=== PATIENT | male | born 1980 | race Caucasian/White ===

== ENCOUNTER 2024-03-10 13:56 | Inpatient (IN) | payer BC, SELFPAY ==
[2024-03-10 14:46] VITALS: BP 136/96; PULSE 100; RESP 16; TEMP 36.7; O2SAT 94; BMI 37.8
[2024-03-10 15:00] VITALS: PULSE 100; RESP 16
[2024-03-10] MEDS: 0.9 % SODIUM CHLORIDE 1000 ml 1,000 ML 75 ML IV (15:32)
--- NOTE | 2024-03-10 15:33 | PM.IMHP1 ---
Hospitalist- H&P: HPI History of Present Illness Date Seen: 03/10/24 Chief complaint: Direct Admit Narrative: Morris Dias is a 43 year old male who was directly admitted to the hospital from [facility] clinic today for perforated sigmoid diverticulitis. He presented to the clinic this morning with left groin pain, present for 5 days. No inciting incident or trauma, no associated nausea, diarrhea, or constipation. Last BM was this note morning and normal. Ibuprofen helped pain moderately. Last night, patient had a fever at home which prompted his visit to the clinic today. Clinic findings: - WBC of 16 - Sigmoid diverticulitis on CT Ab/pelvis with microperforation - Dr. Graves reviewed case with Dr. Gallegos of General surgery; recommended direct admission for IVFs, abx, NPO status, monitoring Upon arrival to the floor, patient continues to have left lower quadrant pain, but no other concerns for hospitalist team. Morris has never had a colonoscopy. Histories updated below. Review of Systems Status of ROS: Reports: 10 or more systems reviewed and unremarkable except as noted in History and below Narrative: - no chest pain, no dyspnea - no skin complaints, no GI or concerns PFSH PFS Medical History (Updated 03/10/24 @ 16:34 by Wilma Bailon MD) Hyperlipidemia ?E78.5 - Hyperlipidemia, unspecified (ICD-10) Non-insulin dependent diabetes mellitus Essential hypertension ?I10 - Essential (primary) hypertension (ICD-10) Surgical History (Updated 03/10/24 @ 16:02 by Wilma Bailon MD) Status post open reduction and internal fixation (ORIF) of fracture ?Z98.890 - Other specified postprocedural states (ICD-10) ?Z87.81 - Personal history of (healed) traumatic fracture (ICD-10) Social History (Updated 03/10/24 @ 16:03 by Wilma Bailon MD) Narrative: Lives independently in [place]. Nonsmoker, + chewing tobacco. ETOH a few nights/week, no h/o withdrawal. Works for [employer] (formerly [employer]). Father Daniel would be MDM if needed. Full Code status. What is your current living situation?: I presently have a place to live Problems where you live: no known problems Problems where you live details: no known problems In the past 12 months, utilities in danger of being shut off: no In past 12 months, lack of transportation kept you from medical appts, meetings, work, or getting things needed for daily living: no In the past 12 mos, have been you worried that your food would run out before you had money to buy more?: never true In the past 12 mos, the food you bought just didn't last and you didn't have money to buy more?: never true Highest level of school completed/degree received: some college, no degree Smoking Status: Never smoker How often do you have a drink containing alcohol: 2-3 times a week Alcohol type: beer How many standard drinks containing alcohol do you have on a typical day: 7 to 9 How often do you have six or more drinks on one occasion: Never AUDIT-C Alcohol total score: 6 Caffeine: Yes How often does anyone, including family, friends and others, physically hurt you: never How often does anyone, including family, friends and others, insult or talk down to you: never How often does anyone, including family, friends and others, threaten you with harm: never How often does anyone, including family, friends and others, scream or curse at you: never service: Yes Meds Home Medications and Allergies Home Medications ?Medication ?Instructions ?Recorded ?Confirmed ?Type amlodipine 5 mg tablet 5 mg PO DAILY 03/10/24 03/10/24 History atorvastatin 10 mg tablet 10 mg PO DAILY 03/10/24 03/10/24 History losartan 100 1 tab PO DAILY 03/10/24 03/10/24 History mg-hydrochlorothiazide 25 mg tablet metformin 1,000 mg tablet 1,000 mg PO DAILY 03/10/24 03/10/24 History Allergies Allergy/AdvReac Type Severity Reaction Status Date / Time Penicillins Allergy Rash Verified 03/10/24 15:06 Exam Narrative: Exam Narrative: GEN: Alert and oriented, nontoxic HEENT: EOMIs bilaterally, no scleral icterus CV: RRR, no tachycardia, no murmurs R: LCTA bilaterally Ab: No distention, + LLQ pain Ext: wwp, no concerning edema Skin: No concerning skin lesions or rashes on exposed skin Neuro: No focal deficits Psych: Appropriate Const: Vital Signs, click to edit/add: Vital Signs - 24 hr 03/10/24 14:46 03/10/24 14:46 Temperature 98.0 F Pulse Rate [Pulse Oximeter] 100 Respiratory Rate 16 Blood Pressure [Ri ght Arm] 136/96 H Pulse Oximetry 94 94 Oxygen Delivery Me thod Room Air Room Air Assessment and Plan Assessment and plan (1) Diverticulitis of colon with perforation: Problem comment: - Ertapenem (h/o remote allergy to PCN, patient doesn't remember if he had a rash or edema), NPO status, General Surgery referral Status: Acute (2) Non-insulin dependent diabetes mellitus: Problem comment: - Last A1C 5.2, on once daily Metformin as an outpatient - hold Metformin, BID accuchecks Status: Acute (3) Essential hypertension: Problem comment: - on Losartan/HCTZ and Amlodipine as an outpatient, continue these Status: Acute Plan - per above - Lovenox for ppx - Full Code
[2024-03-10] MEDS: ERTAPENEM 1 GM in 0.9 % SODIUM CHLORIDE Mini-bag 100 ML IVPB (15:34)
[2024-03-10] MEDS: MORPHINE 2 MG/ML inj IVP ×2 (18:46→23:07)
[2024-03-10 19:00] VITALS: BP 159/102; PULSE 85; RESP 20; TEMP 37.1; O2SAT 96
--- NOTE | 2024-03-10 19:22 | PC.NURSE ---
End of shift: Patient alert and oriented x4. VSS. rates pain 5/10 PRN morphine admin. x1. okayed patient to have small chips (ice). Patient indep. in Rm to BR and up to chair. IV in left wrist patent. Patient on RA, denies N/V/SOB.
[2024-03-10 22:06] VITALS: BP 128/88; PULSE 85; RESP 20; TEMP 37.6; O2SAT 94
[2024-03-10] MEDS: SODIUM CHLORIDE 0.9 % (FLUSH) 10 ML SYRINGE 5 ML IVF (23:06)
[2024-03-11 03:00] VITALS: BP 133/83; PULSE 86; RESP 18; TEMP 36.9; O2SAT 94
[2024-03-11] MEDS: 0.9 % SODIUM CHLORIDE 1000 ml 1,000 ML 75 ML IV ×2 (05:03→18:05)
--- NOTE | 2024-03-11 05:24 | PC.NURSE ---
End of shift note ([id number]): Patient pleasant, alert and oriented. Independent in room. Per Dr Bailon ok for small amount of ice chips. Given PRN?Morphine IVP for pain in left lower abdomen rated 7/10. Good urine output. ?
[2024-03-11 06:11] LABS: Basophils Absolute Auto 0.04 K/uL (0.00-0.30); Basophils Percent Auto 0.4 % (0.0-3.0); Eosinophils Absolute Auto 0.22 K/uL (0.00-0.50); Eosinophils Percent Auto 2.4 % (0.0-7.0); Hematocrit 48.9 % (37.0-53.0); Hemoglobin* 16.7 gm/dL (13.5-17.5); Immature Granulocytes Abs Auto 0.07 K/uL (0.00-0.30); Immature Granulocytes Pct Auto 0.8 %; Lymphocytes Percent Auto 16.2 % (20-44); Mean Corpuscular HGB Conc 34 gm/dL (32-36); Mean Corpuscular Hemoglobin 31 pg (26-34); Mean Corpuscular Volume 92 fL (80-100); Monocytes Percent Auto 10.9 % (0.0-11.0); Neutrophils Absolute Auto 6.22 K/uL (1.7-7.0); Neutrophils Percent Auto 69.3 % (42.0-72.0); Platelet Count* 203 K/uL (140-440); RDW Coefficient of Variation % 12.7 % (11.5-15.5); Red Blood Count 5.33 m/uL (4.30-5.90); White Blood Count* 8.99 K/uL (4.50-11.00)
[2024-03-11 06:17] LABS: Slide Review Reflex No
[2024-03-11 06:23] LABS: Chloride* 105 mmol/L (96-114)
[2024-03-11 06:24] LABS: Potassium* 3.4 mmol/L (3.6-5.1); Sodium* 141 mmol/L (135-149)
[2024-03-11 06:26] LABS: Est. Creatinine Clearance* 90.25; Estimated Glomerular Filt Rate 95 ml/min
[2024-03-11 06:27] LABS: Alanine Aminotransferase* 29 U/L (4-50); Alkaline Phosphatase* 72 U/L (40-150); Anion Gap 9 mEq/L (7-15); Aspartate Amino Transferase* 23 U/L (12-35); Bilirubin Direct* 0.5 mg/dL (0.0-0.5); Bilirubin Total* 1.1 mg/dL (0.1-1.5); Blood Urea Nitrogen* 16 mg/dL (5-24); Calcium* 8.9 mg/dL (8.4-10.6); Carbon Dioxide* 27 mmol/L (20-32); Glucose* 127 mg/dL (60-115); Total Protein* 6.8 g/dL (6.0-8.3)
[2024-03-11 06:44] LABS: C Reactive Protein* 22.4 mg/dL (0.5-1.0)
[2024-03-11 09:03] VITALS: BP 152/115; PULSE 85; RESP 18; TEMP 36.5; O2SAT 97
[2024-03-11] MEDS: AMLODIPINE 5 MG TABLET PO (09:07)
[2024-03-11] MEDS: LOSARTAN POTASSIUM 50 MG TABLET 100 MG PO (09:07)
--- NOTE | 2024-03-11 10:48 | PM.GSCN ---
History of Present Illness Consult details Date Seen: 03/11/24 Consult date: 03/11/24 Narrative: 43-year-old male with diabetes was admitted to the hospital with sigmoid diverticulitis and I was asked by Dr. Graves to see him in consultation. Patient states that he developed left lower quadrant abdominal pain last Friday. He describes it as discomfort at night. The next day he felt that the pain was better and he continued with his day. However, in the evening the pain got worse. His pain was gradually getting worse but was not too severe so on Friday he went to work. When he came back from work, he had sweats. He had a fever of 102. He was then seen in clinic yesterday. Patient continued to pass gas and have bowel movements. He was not eating very much. I personally reviewed his CT scan done at the line of clinic. CT showed sigmoid diverticulitis with foci of free air in sigmoid mesentery concerning for microperforation. There was no evidence of an abscess. Patient's WBC was normal on admission. Patient had his first episode of diverticulitis 4-5 years ago and was treated with antibiotics. This was his second episode. Patient has never had a colonoscopy. Review of Systems Narrative: General: no fevers HENT: no problems swallowing CV: no shortness of breath Resp: no cough GI: No nausea, vomiting, abdominal pain : no dysuria, no increased urinary frequency, no hematuria Skin: no new rashes Musculoskeletal: no back pain Neuro: no muscle weakness Psyche: no depression, no anxiety PFSH PFSH Medical History Hyperlipidemia ?E78.5 - Hyperlipidemia, unspecified (ICD-10) Non-insulin dependent diabetes mellitus Essential hypertension ?I10 - Essential (primary) hypertension (ICD-10) Surgical History Status post open reduction and internal fixation (ORIF) of fracture ?Z98.890 - Other specified postprocedural states (ICD-10) ?Z87.81 - Personal history of (healed) traumatic fracture (ICD-10) Social History Narrative: Lives independently in [place]. Nonsmoker, + chewing tobacco. ETOH a few nights/week, no h/o withdrawal. Works for [employer]. Father Daniel would be MDM if needed. Full Code status. What is your current living situation?: I presently have a place to live Problems where you live: no known problems Problems where you live details: no known problems In the past 12 months, utilities in danger of being shut off: no In past 12 months, lack of transportation kept you from medical appts, meetings, work, or getting things needed for daily living: no In the past 12 mos, have been you worried that your food would run out before you had money to buy more?: never true In the past 12 mos, the food you bought just didn't last and you didn't have money to buy more?: never true Highest level of school completed/degree received: some college, no degree Smoking Status: Never smoker How often do you have a drink containing alcohol: 2-3 times a week Alcohol type: beer How many standard drinks containing alcohol do you have on a typical day: 7 to 9 How often do you have six or more drinks on one occasion: Never AUDIT-C Alcohol total score: 6 Caffeine: Yes How often does anyone, including family, friends and others, physically hurt you: never How often does anyone, including family, friends and others, insult or talk down to you: never How often does anyone, including family, friends and others, threaten you with harm: never How often does anyone, including family, friends and others, scream or curse at you: never service: Yes Meds Home Medications and Allergies Home Medications ?Medication ?Instructions ?Recorded ?Confirmed ?Type amlodipine 5 mg tablet 5 mg PO DAILY 03/10/24 03/10/24 History atorvastatin 10 mg tablet 10 mg PO DAILY 03/10/24 03/10/24 History losartan 100 1 tab PO DAILY 03/10/24 03/10/24 History mg-hydrochlorothiazide 25 mg tablet metformin 1,000 mg tablet 1,000 mg PO DAILY 03/10/24 03/10/24 History Allergies Allergy/AdvReac Type Severity Reaction Status Date / Time Penicillins Allergy Rash Verified 03/10/24 15:06 Exam Narrative: Exam Narrative: General appearance: Alert, cooperative, and in no distress Pulmonary: Chest symmetric, lungs clear bilaterally Cardiovascular Heart: Regular rate and rhythm, S1, S2, no murmurs/rubs/gallops Gastrointestinal Abdominal: soft, not distended, tender to palpation in bilateral lower quadrants with the left being more tender, tender to percussion in the left lower quadrant. Not tender to palpation in epigastrium. Skin: Normal skin color, texture, and turgor. No rashes or lesions. Psychiatric: Alert, cooperative, normal affect. Const: Vital Signs, click to edit/add: Vital Signs - 24 hr 03/10/24 14:46 03/10/24 14:46 03/10/24 15:00 Temperature 98.0 F Pulse Rate [Pulse Oximeter] 100 100 Respiratory Rate 16 16 Blood Pressure [Ri ght Arm] 136/96 H Pulse Oximetry 94 94 Oxygen Delivery Me thod Room Air Room Air 03/10/24 19:00 03/10/24 22:06 03/11/24 03:00 Temperature 98.8 F 99.7 F H 98.5 F Pulse Rate [Pulse Oximeter] 85 85 86 Respiratory Rate 20 20 18 Blood Pressure [Ri ght Arm] 159/102 H 128/88 133/83 Pulse Oximetry 96 94 94 Oxygen Delivery Me thod Room Air Room Air Room Air 03/11/24 09:03 Temperature 97.7 F Pulse Rate [Pulse Oximeter] 85 Respiratory Rate 18 Blood Pressure [Ri ght Arm] 152/115 H Pulse Oximetry 97 Oxygen Delivery Me thod Room Air Results Labs Labs: Abnormal lab results 03/11/24 Range/Units 05:50 Lymph % (Auto) 16.2 L (20-44) % [place] # (Auto) 1.00 H (0.00-0.90) K/UL Potassium 3.4 L (3.6-5.1) mmol/L Glucose 127 H (60-115) mg/dL C-Reactive Protein 22.4 H (0.5-1.0) mg/dL Diabetes panel 03/11/24 Range/Units 05:50 Sodium 141 (135-149) mmol/L Potassium 3.4 L (3.6-5.1) mmol/L Chloride 105 (96-114) mmol/L Carbon Dioxide 27 (20-32) mmol/L BUN 16 (5-24) mg/dL Creatinine 1.0 (0.5-1.5) mg/dL Glucose 127 H (60-115) mg/dL Calcium 8.9 (8.4-10.6) mg/dL AST 23 (12-35) U/L ALT 29 (4-50) U/L Alkaline Phosphatase 72 (40-150) U/L Total Protein 6.8 (6.0-8.3) g/dL Albumin 4.0 (3.3-5.0) g/dL Calcium panel 03/11/24 Range/Units 05:50 Calcium 8.9 (8.4-10.6) mg/dL Albumin 4.0 (3.3-5.0) g/dL Pituitary panel 03/11/24 Range/Units 05:50 Sodium 141 (135-149) mmol/L Potassium 3.4 L (3.6-5.1) mmol/L Chloride 105 (96-114) mmol/L Carbon Dioxide 27 (20-32) mmol/L BUN 16 (5-24) mg/dL Creatinine 1.0 (0.5-1.5) mg/dL Glucose 127 H (60-115) mg/dL Calcium 8.9 (8.4-10.6) mg/dL Adrenal panel 03/11/24 Range/Units 05:50 Sodium 141 (135-149) mmol/L Potassium 3.4 L (3.6-5.1) mmol/L Chloride 105 (96-114) mmol/L Carbon Dioxide 27 (20-32) mmol/L BUN 16 (5-24) mg/dL Creatinine 1.0 (0.5-1.5) mg/dL Glucose 127 H (60-115) mg/dL Calcium 8.9 (8.4-10.6) mg/dL Total Bilirubin 1.1 (0.1-1.5) mg/dL AST 23 (12-35) U/L ALT 29 (4-50) U/L Alkaline Phosphatase 72 (40-150) U/L Total Protein 6.8 (6.0-8.3) g/dL Albumin 4.0 (3.3-5.0) g/dL All other labs normal. Progress Note:A&P Assessment and plan (1) Diverticulitis of colon with perforation: Status: Acute Assessment and Plan: 43-year-old male admitted to the hospital with complicated sigmoid diverticulitis with micro perforation. I discussed with the patient his CT findings and his laboratory findings. We also discussed the etiology of diverticulitis and indications for surgery. At this time I would not recommend proceeding with surgery. Will continue with IV antibiotics since patient's pain is not significantly changed from yesterday. He can have sips of clears since he is not obstructed. Patient will need to have a colonoscopy 6 weeks after his episode has resolved.
--- NOTE | 2024-03-11 11:19 | P.IMPN_ITS ---
Progress Note: A&P Assessment and plan (1) Diverticulitis of colon with perforation: Problem details: CT abdomen pelvis at outside facility shows sigmoid diverticulitis with micro perforation. Leukocytosis, WBC 16, at outside facility, now resolved Remains afebrile. No nausea or vomiting General surgery, Dr. Gallegos, consulted, recommending ongoing nonsurgical management at this time, continuing IV antibiotics, advancing diet to clears Continue Ertapenem (h/o remote allergy to PCN, patient doesn't remember if he had a rash or edema) Small sips of clears only Colonoscopy 6 weeks after episode has resolved, per General surgery Status: Acute (2) Non-insulin dependent diabetes mellitus: Problem details: - Last A1C 5.2, on once daily Metformin as an outpatient - hold Metformin, BID accuchecks Status: Acute (3) Essential hypertension: Problem details: - on Losartan/HCTZ and Amlodipine as an outpatient, continue these Status: Acute Plan Continue IV antibiotics as no change in pain since admission. Continue to monitor for improvement. General surgery following. Time Spent With Patient Total time spent: Total time spent caring for the patient today was 45 minutes. This includes time spent for the visit reviewing the chart, time spent during the visit, time spent after the visit and documentation and planning in coordination of care. Subjective Date Seen: 03/11/24 Interval history: Patient reports essentially feeling the same this morning without change/improvement in his pain. Narcotics help briefly. No further nausea. No recent vomiting. Had a rather normal bowel movement yesterday. Remains afebrile. Denies headache or dizziness. Denies chest pain or shortness of breath. Exam Narrative: Exam Narrative: PHYSICAL EXAM General: Pleasant, conversant, NAD HEENT: Normocephalic, atraumatic, sclera white, EOMI, oral mucosa moist Cardiovascular: RRR, S1S2. No pitting edema Pulmonary: CTA bilaterally without rhonchi, rales, expiratory wheezes. No dyspnea Abdominal: Soft, nondistended, LLQ tenderness worsened with palpation in RLQ, no guarding Neurological: Alert, answering questions appropriately, cranial nerves intact, no focal findings Extremities: No gross joint deformity or swelling. AROMI. Neurovascularly intact Skin: Warm, dry. Const: Vital Signs, click to edit/add: Vital Signs - 24 hr 03/10/24 14:46 03/10/24 14:46 03/10/24 15:00 Temperature 98.0 F Pulse Rate [Pulse Oximeter] 100 100 Respiratory Rate 16 16 Blood Pressure [Ri ght Arm] 136/96 H Pulse Oximetry 94 94 Oxygen Delivery Me thod Room Air Room Air 03/10/24 19:00 03/10/24 22:06 03/11/24 03:00 Temperature 98.8 F 99.7 F H 98.5 F Pulse Rate [Pulse Oximeter] 85 85 86 Respiratory Rate 20 20 18 Blood Pressure [Ri ght Arm] 159/102 H 128/88 133/83 Pulse Oximetry 96 94 94 Oxygen Delivery Me thod Room Air Room Air Room Air 03/11/24 09:03 Temperature 97.7 F Pulse Rate [Pulse Oximeter] 85 Respiratory Rate 18 Blood Pressure [Ri ght Arm] 152/115 H Pulse Oximetry 97 Oxygen Delivery Me thod Room Air Labs Labs: Laboratory Results - last 24 hr 03/11/24 05:50 WBC 8.99 RBC 5.33 Hgb 16.7 Hct 48.9 MCV 92 MCH 31 MCHC 34 RDW Coeff of No 12.7 Plt Count 203 Neut % (Auto) 69.3 Lymph % (Auto) 16.2 L [place] % (Auto) 10.9 Eos % (Auto) 2.4 Baso % (Auto) 0.4 Neut # (Auto) 6.22 Lymph # (Auto) 1.50 [place] # (Auto) 1.00 H Eos # (Auto) 0.22 Baso # (Auto) 0.04 Abs Immat Gran (auto) 0.07 Imm/Tot Granulo (auto) 0.8 Sodium 141 Potassium 3.4 L Chloride 105 Carbon Dioxide 27 Anion Gap 9 BUN 16 Creatinine 1.0 Estimated Creat Clear 90.25 Estimated GFR 95 Glucose 127 H Calcium 8.9 Total Bilirubin 1.1 Direct Bilirubin 0.5 AST 23 ALT 29 Alkaline Phosphatase 72 C-Reactive Protein 22.4 H Total Protein 6.8 Albumin 4.0
[2024-03-11 12:10] VITALS: BP 147/85; PULSE 78; RESP 18; TEMP 36.8; O2SAT 98
[2024-03-11] MEDS: ERTAPENEM 1 GM in 0.9 % SODIUM CHLORIDE Mini-bag 100 ML IVPB (15:20)
--- NOTE | 2024-03-11 15:53 | PC.NURSE ---
End of Shift: The patient is pleasant and cooperative. VSS on RA, BP is noted to be hypertensive. TOlerating sips of water, and ice chips.... per MD ok to go to flavored water, broth but no solid clears (jello/popsicles). The patient reported moderate pain throughout the day, although declined offers for pain medication. Call light within reach. Up ad shonna, N/S @ 75. Walking around the unit to keep busy. Bowel sounds are active. Coni COOLEY BSN
[2024-03-11 16:00] VITALS: BP 155/105; PULSE 82; RESP 18; TEMP 36.9; O2SAT 96
[2024-03-11 19:00] VITALS: BP 162/120; PULSE 85; RESP 18; TEMP 36.6; O2SAT 97
[2024-03-11] MEDS: ENOXAPARIN 40 MG/0.4 ML INJ SUBCUT (21:13)
[2024-03-11 23:00] VITALS: PULSE 85; RESP 16; RESP 18
[2024-03-12 03:00] VITALS: BP 139/103; PULSE 60; RESP 16; TEMP 36.3; O2SAT 95
[2024-03-12] MEDS: 0.9 % SODIUM CHLORIDE 1000 ml 1,000 ML 75 ML IV (06:30)
--- NOTE | 2024-03-12 06:56 | PC.NURSE ---
End of shift [id number]: ?Alert and oriented x 4. ?Abdominal tenderness reported, patient reports that it is tolerable and declines any intervention. ?Bowel sounds active in upper quadrants and hypoactive in lower quadrants. ?Patient reports ?one small loose bowel movement. ?Tolerating clear liquids, denies any nausea or vomiting. ?Ambulates independently in room and on unit.
[2024-03-12 07:40] VITALS: BP 174/137; PULSE 89; RESP 16; TEMP 36.9; O2SAT 100
[2024-03-12] MEDS: ATORVASTATIN 10 MG TABLET PO (08:24)
[2024-03-12] MEDS: AMLODIPINE 5 MG TABLET PO (08:24)
[2024-03-12] MEDS: LOSARTAN POTASSIUM 50 MG TABLET 100 MG PO (08:25)
[2024-03-12 08:32] LABS: Basophils Absolute Auto 0.03 K/uL (0.00-0.30); Basophils Percent Auto 0.5 % (0.0-3.0); Eosinophils Absolute Auto 0.18 K/uL (0.00-0.50); Eosinophils Percent Auto 2.7 % (0.0-7.0); Hematocrit 48.3 % (37.0-53.0); Hemoglobin* 16.8 gm/dL (13.5-17.5); Immature Granulocytes Abs Auto 0.02 K/uL (0.00-0.30); Immature Granulocytes Pct Auto 0.3 %; Lymphocytes Percent Auto 18.8 % (20-44); Mean Corpuscular HGB Conc 35 gm/dL (32-36); Mean Corpuscular Hemoglobin 32 pg (26-34); Mean Corpuscular Volume 90 fL (80-100); Monocytes Percent Auto 9.4 % (0.0-11.0); Neutrophils Absolute Auto 4.51 K/uL (1.7-7.0); Neutrophils Percent Auto 68.3 % (42.0-72.0); Platelet Count* 215 K/uL (140-440); RDW Coefficient of Variation % 12.1 % (11.5-15.5); Red Blood Count 5.34 m/uL (4.30-5.90)
[2024-03-12 08:39] LABS: Slide Review Reflex No
[2024-03-12 08:47] LABS: Chloride* 104 mmol/L (96-114); Potassium* 3.9 mmol/L (3.6-5.1); Sodium* 141 mmol/L (135-149)
[2024-03-12 08:50] LABS: Anion Gap 11 mEq/L (7-15); Blood Urea Nitrogen* 15 mg/dL (5-24); Carbon Dioxide* 26 mmol/L (20-32); Creatinine* 0.8 mg/dL (0.5-1.5); Est. Creatinine Clearance* 112.81; Estimated Glomerular Filt Rate 111 ml/min
[2024-03-12 08:51] LABS: Glucose* 124 mg/dL (60-115)
--- NOTE | 2024-03-12 10:42 | PM.IMPN1 ---
Progress Note: A&P Assessment and plan (1) Diverticulitis of colon with perforation: Problem details: CT abdomen pelvis at outside facility shows sigmoid diverticulitis with micro perforation. Leukocytosis, WBC 16, at outside facility, now resolved Remains afebrile. No nausea or vomiting General surgery, Dr. Gallegos, consulted, recommending ongoing nonsurgical management at this time, continuing IV antibiotics, advancing diet to clears Continue Ertapenem (h/o remote allergy to PCN, patient doesn't remember if he had a rash or edema) Small sips of clears only Colonoscopy 6 weeks after episode has resolved, per General surgery 03/12: Pain has improved. Labs unremarkable. Await evaluation and recommendations of General surgery. Imagine we will be able to begin to slowly advanced his diet at some point. Continuing IV antibiotics. May likely need set up for outpatient IV therapy pending surgery recommendations. Status: Acute (2) Non-insulin dependent diabetes mellitus: Problem details: - Last A1C 5.2, on once daily Metformin as an outpatient - hold Metformin, BID accuchecks Status: Acute (3) Essential hypertension: Problem details: - on Losartan/HCTZ and Amlodipine as an outpatient, continue these Status: Acute Plan Continue IV antibiotics. General surgery following. Time Spent With Patient Total time spent: Total time spent caring for the patient today was 45 minutes. This includes time spent for the visit reviewing the chart, time spent during the visit, time spent after the visit and documentation and planning in coordination of care. Subjective Date Seen: 03/12/24 Interval history: Patient is up ambulating in the hallways this morning. Reports feeling good. Pain has improved, not completely resolved. Localized more to LLQ now. Able to move more freely. Has remained afebrile. No nausea, vomiting, diarrhea. Tolerating sips of clears. Exam Narrative: Exam Narrative: PHYSICAL EXAM General: Pleasant, conversant, NAD, ambulating hallways Cardiovascular: RRR, S1S2. No pitting edema Pulmonary: CTA bilaterally without rhonchi, rales, expiratory wheezes. No dyspnea on room air Abdominal: Soft, nondistended, LLQ tenderness with moderate palpation, no longer elicited from right side, no guarding Neurological: Alert, answering questions appropriately, cranial nerves intact, no focal findings Extremities: No gross joint deformity or swelling. AROMI. Neurovascularly intact Skin: Warm, dry. Const: Vital Signs, click to edit/add: Vital Signs - 24 hr 03/11/24 12:10 03/11/24 16:00 03/11/24 16:00 Temperature 98.2 F 98.5 F Pulse Rate [Pulse Oximeter] 78 82 82 Respiratory Rate 18 18 18 Blood Pressure [Ri ght Arm] 147/85 H 155/105 H Pulse Oximetry 98 96 Oxygen Delivery Me thod Room Air Room Air 03/11/24 19:00 03/11/24 23:00 03/11/24 23:00 Temperature 97.8 F Pulse Rate [Pulse Oximeter] 85 85 Respiratory Rate 18 18 16 Blood Pressure [Ri ght Arm] 162/120 H Pulse Oximetry 97 Oxygen Delivery Me thod Room Air 03/12/24 03:00 03/12/24 07:40 Temperature 97.3 F L 98.4 F Pulse Rate [Pulse Oximeter] 60 89 Respiratory Rate 16 16 Blood Pressure [Ri ght Arm] 139/103 H 174/137 H Pulse Oximetry 95 100 Oxygen Delivery Me thod Room Air Room Air Labs Labs: Laboratory Results - last 24 hr 03/12/24 08:25 WBC 6.60 RBC 5.34 Hgb 16.8 Hct 48.3 MCV 90 MCH 32 MCHC 35 RDW Coeff of No 12.1 Plt Count 215 Neut % (Auto) 68.3 Lymph % (Auto) 18.8 L [place] % (Auto) 9.4 Eos % (Auto) 2.7 Baso % (Auto) 0.5 Neut # (Auto) 4.51 Lymph # (Auto) 1.20 [place] # (Auto) 0.60 Eos # (Auto) 0.18 Baso # (Auto) 0.03 Abs Immat Gran (auto) 0.02 Imm/Tot Granulo (auto) 0.3 Sodium 141 Potassium 3.9 Chloride 104 Carbon Dioxide 26 Anion Gap 11 BUN 15 Creatinine 0.8 Estimated Creat Clear 112.81 Estimated GFR 111 Glucose 124 H Calcium 9.0
[2024-03-12 10:44] VITALS: BP 146/95; PULSE 82; RESP 16; TEMP 36.4; O2SAT 96
--- NOTE | 2024-03-12 13:19 | NUTR.NU ---
RDN with MD consult with diet ed related to diverticulitis. Patient admitted with diverticulitis of colon with perforation. Current weight 244 lb 8 oz; height 5ft 8in; BMI 37.2 kg/m2. Current diet Regular. Patient was on clear liquids this morning. Visited with patient whom reports tolerating lunch of toast and carrot sticks. He agreed to receive diet education. Patient was provided diet education on a low fiber diet. Discussed foods to include and foods to avoid until MD recommends advancing to high fiber diet. Education also provided on gradually increasing fiber and following a high fiber diet (25-35 grams/day) long-term.?Verbal and written information as well as sample menus provided on both diets from [facility].?Patient verbalized understanding.? RDN's contact information was provided and patient was encouraged to contact RDN with questions.
--- NOTE | 2024-03-12 14:05 | PM.GSPN ---
Subjective Subjective Date Seen: 03/12/24 Interval history: Patient is feeling better today. His pain is significantly improved. He is passing gas and had multiple liquid bowel movements. He was advanced to regular diet and tolerated send which very well. He was afebrile and continues to have normal WBC. Exam Narrative: Exam Narrative: Abdomen is soft, not distended, somewhat tender to palpation in the left lower quadrant and that is significantly improved compared to yesterday. Const: Vital Signs, click to edit/add: Vital Signs - 24 hr 03/11/24 16:00 03/11/24 16:00 03/11/24 19:00 Temperature 98.5 F 97.8 F Pulse Rate [Pulse Oximeter] 82 82 85 Respiratory Rate 18 18 18 Blood Pressure [Ri ght Arm] 155/105 H 162/120 H Pulse Oximetry 96 97 Oxygen Delivery Me thod Room Air Room Air 03/11/24 23:00 03/11/24 23:00 03/12/24 03:00 Temperature 97.3 F L Pulse Rate [Pulse Oximeter] 85 60 Respiratory Rate 18 16 16 Blood Pressure [Ri ght Arm] 139/103 H Pulse Oximetry 95 Oxygen Delivery Me thod Room Air 03/12/24 07:40 03/12/24 10:44 Temperature 98.4 F 97.6 F Pulse Rate [Pulse Oximeter] 89 82 Respiratory Rate 16 16 Blood Pressure [Ri ght Arm] 174/137 H 146/95 H Pulse Oximetry 100 96 Oxygen Delivery Me thod Room Air Room Air Progress Note:A&P Assessment and plan (1) Diverticulitis of colon with perforation: Status: Acute Assessment and Plan: 43-year-old male admitted to the hospital with sigmoid diverticulitis with micro perforation. Patient will continue with IV antibiotics as outpatient. If these arrangements can be made for him to receive outpatient IV antibiotics, patient can discharge at any time. Patient may need a PICC line placed. He will continue with regular diet. Patient should have a repeat colonoscopy in 6-8 weeks. He can follow up with his primary care doctor to make sure his symptoms improved.
[2024-03-12 14:26] VITALS: BP 162/105; PULSE 86; RESP 16; TEMP 36.4; O2SAT 96
[2024-03-12] MEDS: ERTAPENEM 1 GM in 0.9 % SODIUM CHLORIDE Mini-bag 100 ML IVPB (15:31)
[2024-03-12] MEDS: SODIUM CHLORIDE 0.9 % (FLUSH) 10 ML SYRINGE 5 ML IVF (15:32)
--- NOTE | 2024-03-12 16:49 | PM.DS1 ---
DS: Providers Provider Date Seen: 03/12/24 Date of admission: 03/10/24 15:14 Primary care physician: Inna Noguera PA-C Admitting Clinician: Nancy eRyes MD Consults: 03/10/24 15:24 Consult to Nutrition [CONS] Routine Comment: Reason for consult:: Miscellaneous Comment: diverticulitis 03/10/24 16:31 Consult to Physician [CONS] Routine Comment: Consulting Provider: General Surgery, [facility] Has provider been notified: Yes Attending Physician on discharge: Victor Hugo Velazquez MD Date of Discharge: 03/12/24 DS: Diagnosis Discharge Diagnosis (1) Diverticulitis of colon with perforation: Status: Acute Problem details: CT abdomen pelvis at outside facility shows sigmoid diverticulitis with micro perforation. Leukocytosis, WBC 16, at outside facility, now resolved Remains afebrile. No nausea or vomiting General surgery, Dr. Gallegos, consulted, recommending ongoing nonsurgical management at this time, continuing IV antibiotics, advancing diet to clears Continue Ertapenem (h/o remote allergy to PCN, patient doesn't remember if he had a rash or edema) Small sips of clears only Colonoscopy 6 weeks after episode has resolved, per General surgery 03/12: Pain has improved. Labs unremarkable. Condition remarkably improved. Tolerating low residue diet. Discussed with General surgery. Patient is discharged home and will need 8 more days of IV ertapenem 1 g daily. Will set up for midline cath placement. Referred to [facility]. (2) Total bilirubin, elevated: Status: Acute Problem details: - noted on clinic labs 03/10, will follow (3) Non-insulin dependent diabetes mellitus: Status: Acute Problem details: - Last A1C 5.2, on once daily Metformin as an outpatient - hold Metformin, BID accuchecks (4) Essential hypertension: Status: Acute Problem details: - on Losartan/HCTZ and Amlodipine as an outpatient, continue these (5) Hyperlipidemia: Status: Acute DS: Summary Hospital Course Hospital Course: Admission history of present illness: ?43 year old male who was directly admitted to the hospital from [facility] today for perforated sigmoid diverticulitis. He presented to the clinic this morning with left groin pain, present for 5 days. No inciting incident or trauma, no associated nausea, diarrhea, or constipation. Last BM was this note morning and normal. Ibuprofen helped pain moderately. Last night, patient had a fever at home which prompted his visit to the clinic today. ?Clinic findings: - WBC of 16 - Sigmoid diverticulitis on CT Ab/pelvis with microperforation - Dr. Graves reviewed case with Dr. Gallegos of General surgery; recommended direct admission for IVFs, abx, NPO status, monitoring ?Upon arrival to the floor, patient continues to have left lower quadrant pain, but no other concerns for hospitalist team. Morris has never had a colonoscopy. Histories updated below.? Patient's condition improved over time such that he was able to tolerate a low residue diet and resume his usual activities. Is discharged with follow-up instructions as noted. Status at Discharge Functional status at discharge: independent ambulation Overall status at discharge: patient is back to baseline Time Spent with Patient Time attestation: Total time spent providing and/or coordinating discharge services: Time spent: Greater than 30 minutes Exam Narrative: Exam Narrative: General: Pleasant, conversant, NAD, ambulating hallways Cardiovascular: RRR, S1S2. No pitting edema Pulmonary: CTA bilaterally without rhonchi, rales, expiratory wheezes. No dyspnea on room air Abdominal: Soft, nondistended, LLQ tenderness with moderate palpation, no longer elicited from right side, no guarding Neurological: Alert, answering questions appropriately, cranial nerves intact, no focal findings. Independent transfer, station, and gait. Extremities: No gross joint deformity or swelling. AROMI. Neurovascularly intact Skin: Warm, dry. Const: Vital Signs, click to edit/add: Vital Signs - 24 hr 03/11/24 19:00 03/11/24 23:00 03/11/24 23:00 Temperature 97.8 F Pulse Rate Pulse Rate [Pulse Oximeter] 85 85 Respiratory Rate 18 18 16 Blood Pressure Blood Pressure [Ri ght Arm] 162/120 H Pulse Oximetry 97 Oxygen Delivery Me thod Room Air 03/12/24 03:00 03/12/24 07:40 03/12/24 10:44 Temperature 97.3 F L 98.4 F 97.6 F Pulse Rate Pulse Rate [Pulse Oximeter] 60 89 82 Respiratory Rate 16 16 16 Blood Pressure Blood Pressure [Ri ght Arm] 139/103 H 174/137 H 146/95 H Pulse Oximetry 95 100 96 Oxygen Delivery Me thod Room Air Room Air Room Air 03/12/24 14:26 Temperature 97.6 F Pulse Rate 86 Pulse Rate [Pulse Oximeter] Respiratory Rate 16 Blood Pressure 162/105 H Blood Pressure [Ri ght Arm] Pulse Oximetry 96 Oxygen Delivery Me thod Room Air DS: Data Data Completed and Pending Labs on day of discharge: Labs from last 24 hours 03/12/24 08:25 WBC 6.60 RBC 5.34 Hgb 16.8 Hct 48.3 MCV 90 MCH 32 MCHC 35 RDW Coeff of No 12.1 Plt Count 215 Neut % (Auto) 68.3 Lymph % (Auto) 18.8 L [place] % (Auto) 9.4 Eos % (Auto) 2.7 Baso % (Auto) 0.5 Neut # (Auto) 4.51 Lymph # (Auto) 1.20 [place] # (Auto) 0.60 Eos # (Auto) 0.18 Baso # (Auto) 0.03 Abs Immat Gran (auto) 0.02 Imm/Tot Granulo (auto) 0.3 Sodium 141 Potassium 3.9 Chloride 104 Carbon Dioxide 26 Anion Gap 11 BUN 15 Creatinine 0.8 Estimated Creat Clear 112.81 Estimated GFR 111 Glucose 124 H Calcium 9.[address] scan of abdomen and pelvis: Radiologist's impression: Sigmoid diverticulitis with microperforation Discharge Plan Discharge Disposition: Home, Self-Care Date of Admission: 03/10/24 15:14 Attending Provider on Discharge: Victor Hugo Velazquez Consulting Providers: Conchita Layne; Alberto Gallegos; Bina Gardner Primary Care Provider: Inna Noguera Condition: Stable Anticipated Discharge Date/Time: 03/12/24 17:00 Discharge Medications: New ertapenem 1 gram Recon Soln 1 g IV Q24H 8 Days Rx Instructions: No need to fill this prescription. He will receive this medication at the IV infusion center at [facility]. acetaminophen 325 mg Tablet 650 mg PO Q6H PRNQty: 30 0RF Continued amlodipine 5 mg tablet 5 mg PO DAILY losartan-hydrochlorothiazide 100-25 mg tablet 1 tab PO DAILY metformin 1,000 mg tablet 1,000 mg PO DAILY atorvastatin 10 mg tablet 10 mg PO DAILY Discharge Orders: Discharge Order (Routine); Ordered 03/12/24 Ordered By: Victor Hugo Velazquez Patient Education: Acetaminophen (By mouth), Ertapenem (By injection), Diverticulitis (DC), Diverticulitis Diet (DC), Perforated Bowel (DC) Additional Instructions: 1. F/U with PCP in 4-7 days 2. Daily IV infusion of antibiotic Ertapenem for 8 more doses starting on 03/13/24 3. Need colonoscopy in 6-8 weeks- arrange with your PCP 4. Return to the hospital ED if condition suddenly worsens 5. Contact or return to the surgery clinic if other concerns Activity Level: No Restrictions and Activity as Tolerated Discharge Diet: Low Fiber Follow Up Appointments: Inna Noguera PA-C [Primary Care Provider] - 03/17/24 11:35 am ([facility] for follow up with PCP) Forms: Work/School Release, [employer] Info Instructions
--- NOTE | 2024-03-12 17:02 | PC.NURSE ---
Pt is pleasant, alert, and oriented. He is hypertensive, MD aware and managed with medication (see MAR). Otherwise vitally stable. Pt is saline locked and is up independently. Bowel sounds active in all four quadrants this afternoon, pt stated he had 3 BMs. Diet advanced to regular diet, tolerating well. Encouraged ambulation, 3x walks in thomas. IV removed, catheter intact. Midline will be placed tomorrow before antibiotic administration. Discharge instructions given, discharged home with spouse.?
== END 2024-03-12 16:55 | disposition home or self-care (01) | DRG 244 ==
PROVIDERS: Admitting Provider Family Medicine; PCP Student in an Organized Health Care Education/Training Program; Referring Provider Physician Assistant; Visit Provider Family Medicine
DX: K57.20 Diverticulitis of large intestine with perforation and abscess without bleeding (principal); I10 Essential (primary) hypertension; E78.5 Hyperlipidemia, unspecified; E11.9 Type 2 diabetes mellitus without complications; Z79.84 Long term (current) use of oral hypoglycemic drugs; E80.7 Disorder of bilirubin metabolism, unspecified
CPT/HCPCS: 36415; 80048; 80076; 82962; 85025; 86140; A9270; J1335; J1650; J2270; J7030

== ENCOUNTER 2024-03-20 10:51 | Outpatient (RCR) | payer BC, SELFPAY ==
[2024-03-13 14:02] VITALS: BP 159/113; PULSE 86; RESP 18; TEMP 36.6; O2SAT 98
[2024-03-13 15:06] VITALS: BP 142/101
[2024-03-13] MEDS: ERTAPENEM 1 GM inj IVPB (15:06)
--- NOTE | 2024-03-13 15:33 | PC.NURSE ---
Pt presented via ambulatory accompanied by family member for midline placement and IV antibiotics. Midline placement went well without complications. Line is patent with good blood return. Placed in his LUE. Pt has been hypertensive during entire visit but reports being asymptomatic. He is afebrile and has no c/o pain, dizziness or nausea. Pt tolerated IV Ertapenem without issue. Pt discharged from the unit via ambulatory with family at 1539.
[2024-03-14 14:58] VITALS: BP 144/95; PULSE 80; RESP 16; TEMP 36.6; O2SAT 95
[2024-03-14] MEDS: ERTAPENEM 1 GM inj IVPB (15:13)
--- NOTE | 2024-03-14 15:31 | PC.NURSE ---
Rate not put into MAR for out patient infusion, talked with pharmacy, verified rate and started. Pharmacy will update eMAR.
--- NOTE | 2024-03-14 15:33 | PC.NURSE ---
Vital signs stable, infusion started.
[2024-03-15 14:05] VITALS: BP 143/91; PULSE 76; RESP 16; TEMP 36.6
[2024-03-15] MEDS: ERTAPENEM 1 GM in 0.9 % SODIUM CHLORIDE Mini-bag 100 ML IVPB (14:29)
[2024-03-15] MEDS: 0.9 % SODIUM CHLORIDE 250 ml IV (14:30)
[2024-03-16 14:19] VITALS: BP 135/93; PULSE 78; RESP 16; TEMP 36.4; O2SAT 96
[2024-03-16] MEDS: ERTAPENEM 1 GM in 0.9 % SODIUM CHLORIDE Mini-bag 100 ML IVPB (14:21)
[2024-03-16] MEDS: SODIUM CHLORIDE 0.9 % (FLUSH) 10 ML SYRINGE IVF ×2 (14:21→15:45)
[2024-03-16] MEDS: 0.9 % SODIUM CHLORIDE 250 ml IV (14:30)
[2024-03-17 15:01] VITALS: BP 131/92; PULSE 99; RESP 16; TEMP 36.3; O2SAT 95
[2024-03-17] MEDS: SODIUM CHLORIDE 0.9 % (FLUSH) 10 ML SYRINGE IVF ×2 (15:08→15:45)
[2024-03-17] MEDS: ERTAPENEM 1 GM in 0.9 % SODIUM CHLORIDE Mini-bag 100 ML IVPB (15:10)
[2024-03-18 14:14] VITALS: BP 144/97; PULSE 82; RESP 16; TEMP 36.4; O2SAT 97
[2024-03-18] MEDS: ERTAPENEM 1 GM in 0.9 % SODIUM CHLORIDE Mini-bag 100 ML IVPB (14:29)
[2024-03-18] MEDS: 0.9 % SODIUM CHLORIDE 250 ml IV (14:30)
[2024-03-18] MEDS: SODIUM CHLORIDE 0.9 % (FLUSH) 10 ML SYRINGE IVF (14:31)
[2024-03-19 14:58] VITALS: BP 132/91; PULSE 80; RESP 16; TEMP 36.4; O2SAT 96
[2024-03-19] MEDS: ERTAPENEM 1 GM in 0.9 % SODIUM CHLORIDE Mini-bag 100 ML IVPB (15:00)
[2024-03-19] MEDS: SODIUM CHLORIDE 0.9 % (FLUSH) 10 ML SYRINGE IVF (15:40)
[2024-03-20] MEDS: ERTAPENEM 1 GM in 0.9 % SODIUM CHLORIDE Mini-bag 100 ML IVPB (11:03)
[2024-03-20] MEDS: 0.9 % SODIUM CHLORIDE 250 ml IV (11:04)
[2024-03-20] MEDS: SODIUM CHLORIDE 0.9 % (FLUSH) 10 ML SYRINGE IVF (11:05)
[2024-03-20 11:06] VITALS: BP 141/98; PULSE 89; RESP 16; TEMP 36.7; O2SAT 93
[2024-03-20 12:06] VITALS: BP 139/101; PULSE 81; RESP 16; TEMP 36.9; O2SAT 96
== END 2024-09-09 23:59 | disposition home or self-care (01) ==
LOC: CCIC 10:51
PROVIDERS: PCP Student in an Organized Health Care Education/Training Program; Referring Provider Student in an Organized Health Care Education/Training Program; Visit Provider Internal Medicine
DX: K57.20 Diverticulitis of large intestine with perforation and abscess without bleeding (principal)
CPT/HCPCS: 36410; 96365; 99211; G0463; A4221; J1335; J7050